=== PATIENT | male | born 1940 | race Native Hawaiian/Other Pacific Islander ===

== ENCOUNTER 2019-06-16 21:45 | Emergency (ER) | payer OTHER ==
[~2019-06-16] VITALS: Ht 175.3 cm; Wt 83.9 kg
[2019-06-16 21:45] VITALS: BP 143/88; TEMP 97.7
[2019-06-16 22:58] LABS: PLATELET COUNT 214 K/uL (142-355)
[2019-06-16 23:06] LABS: POTASSIUM 4.1 mmol/L (3.6-5.2)
[2019-06-17] MEDS ORDERED: EQL ASPIRIN325 M1 PO (01:47)
[2019-06-17] MEDS ORDERED: LEXAPRO20 MG PO (01:47)
[2019-06-17] MEDS ORDERED: KP FOLIC ACID1 MG PO (01:48)
[2019-06-17] MEDS ORDERED: MULTIVITAMI1 PO (01:48)
[2019-06-17] MEDS ORDERED: NIACIN250 M1 PO (01:48)
[2019-06-17] MEDS ORDERED: SEROQUEL25 MG PO (01:49)
[2019-06-17] MEDS ORDERED: VITAMIN B650 MG PO (01:50)
[2019-06-17] MEDS ORDERED: B12-ACTIVE1 MG PO (01:50)
[2019-06-17] MEDS ORDERED: MEMA5TAB PO (01:51)
[2019-06-17] MEDS ORDERED: VITAMIN D35000 UNIT PO (01:51)
[2019-06-17] MEDS ORDERED: SEROQUEL50 MG PO (01:52)
[2019-06-17] MEDS ORDERED: LIPITOR10 MG PO (01:52)
[2019-06-17] MEDS ORDERED: BISACODYL5 M1 PO (01:53)
[2019-06-17] MEDS ORDERED: LORA1TAB17 PO (01:53)
[2019-06-17] MEDS ORDERED: VENL37.511 PO (01:54)
[2019-06-20] MEDS ORDERED: MEMA5TAB PO (08:59)
[2019-06-20] MEDS ORDERED: DONE5TAB PO (09:00)
[2019-06-20] MEDS ORDERED: CLON0.5T36 PO (09:02)
[2019-06-20] MEDS ORDERED: ABILIFY MYCITE5 MG PO (09:03)
== END 2019-06-16 23:35 | disposition other institution (70) ==
LOC: ED 22:03
PROVIDERS: Student in an Organized Health Care Education/Training Program
DX: F91.8 Other conduct disorders (principal); I45.19 Other right bundle-branch block; Z04.6 Encounter for general psychiatric examination, requested by authority
CPT/HCPCS: 36415; 80053; 85027; 93005; 99285